=== PATIENT | male | born 1945 | race Caucasian/White ===

== ENCOUNTER → 2022-11-15 14:32 | Outpatient (BNVA) | payer MEDICARE, SELFPAY | PROVIDERS: PCP Internal Medicine; Visit Provider Internal Medicine | DX: J45.909 Unspecified asthma, uncomplicated (principal); R05.9 Cough, unspecified | CPT/HCPCS: 99202 ==

== ENCOUNTER 2023-01-03 09:47 | Outpatient (REF) | payer OTHER, SELFPAY ==
--- NOTE | 2023-01-03 10:20 | PFT_ITS ---
FLOWS: 1. FEV1 122% of predicted at 3.23 L. 2. FVC 113% of predicted at 4.19 L. 3. FEV1 to FVC ratio of 0.77. 4. No bronchodilator response except in small to medium airways. LUNG VOLUMES: 1. Total lung capacity 95% of predicted at 6.18 L. 2. Residual volume 75% of predicted at 1.82 L. 3. Slow vital capacity 108% of predicted at 4.36 L. 4. Expiratory reserve volume 56% of predicted at 0.58 L. 5. Diffusion capacity is normal. IMPRESSION: No obstructive or restrictive ventilatory defect. No bronchodilator response except in small to medium airways. Otherwise normal pulmonary function test. MD ASH Pabon/MODL / [id number]
== END 2023-01-03 09:48 | disposition home or self-care (01) ==
LOC: HO.RESP 09:47
PROVIDERS: PCP Internal Medicine; Visit Provider Internal Medicine
DX: J45.909 Unspecified asthma, uncomplicated (principal); R05.9 Cough, unspecified
CPT/HCPCS: 94010; 94727; 94729

== ENCOUNTER → 2023-01-03 10:20 | Outpatient (BNV) | payer MEDICARE, SELFPAY | PROVIDERS: PCP Internal Medicine; Visit Provider Internal Medicine Pulmonary Disease | DX: R05.9 Cough, unspecified (principal) | CPT/HCPCS: 94060; 94727; 94729 ==

== ENCOUNTER 2023-01-17 13:36 | Outpatient (AMB) | payer OTHER, SELFPAY ==
[2023-01-17 13:40] VITALS: BP 124/70; PULSE 63; O2SAT 95; BMI 33.3
--- NOTE | 2023-01-17 13:40 | MHC.OFFVIS ---
Intake Vital Signs 01/17/23 13:40 Height 5 ft 7 in Weight 212 lb 11.937 oz BMI 33.3 BP 124/70 Blood Pressure Location Lt brachial Position Sitting Pulse 63 Pulse Source Pulse Oximeter Pulse Oximetry (%) 95 Oxygen Delivery Method Room Air Intake Visit Reasons: Cough Allergies No Known Allergies Allergy (Verified 01/17/23 15:04) Medication List - Last Reconciled 01/17/23 by Cherie Prince MD albuterol sulfate 90 mcg/actuation 2 puffs inhalation Q4-6H PRN 30 days fluticasone propionate 50 mcg/actuation (Children's Flonase Allergy Relief) 2 sprays intranasal DAILY 30 days loratadine 10 mg PO DAILY PRN 30 days prazosin 3 mg PO BEDTIME sertraline 150 mg PO DAILY trazodone 25 mg PO BEDTIME PRN Do you need a note to return to daycare/school/sports/work: No HPI Cough HPI Details THIS 77 YEARS OLD GENTLEMAN IS HERE FOR FOLLOW-UP AFTER HIS PULMONARY FUNCTION TEST. HE CONTINUES TO HAVE MILD INTERMITTENT NASAL CONGESTION WITH, INTERMITTENT RUNNY NOSE, AND ALSO INTERMITTENT BOUTS OF COUGH. THE COUGH GETS BETTER IF HE USES MUCINEX, AND ALSO WITH THE USE OF ALBUTEROL INHALER. ) HE ALSO RINSES HIS MOUTH WITH DILUTED HYDROGEN PEROXIDE SOLUTION, HE IS VERY FOND OF USING H2O2 ( HAS READ THE BOOK, MIRACLE OF H2 O2 HE USES FLONASE AND CLAIMS THAT SOMETIME AFTER USING FLONASE HE GETS MORE RUNNY NOSE, BUT IT CLEARS LATER ON. [facility] Medical History Allergic rhinitis Asthma Cough Social History Patient Tobacco Use Status: Never used Tobacco Review of Systems Const All systems reviewed & are unremarkable except as noted in HPI and below Eyes Reports no additional complaints ENT Reports nasal congestion and Reports post nasal drip (OFF AND ON) Card Denies chest pain, Denies irregular heart rhythm, Denies leg edema and Denies dyspnea on exertion Resp Reports as per HPI and Denies dyspnea on exertion GI Reports no additional complaints Reports no additional complaints Musc Reports no additional complaints Skin/Breast Reports system reviewed and no additional complaints, except as documented Neuro Reports no additional complaints Psych Reports depression (CONTROLLED WITH MED SERTRALINE 150 MG) Endo Reports no additional complaints Aller/Immun Reports no additional complaints Physical Exam Vital Signs: Last Vital Signs Pulse 63 01/17/23 13:40 BP 124/70 01/17/23 13:40 Pulse Ox 95 01/17/23 13:40 Oxygen Delivery Method Room Air 01/17/23 13:40 BMI result Body Mass Index 33.3 Const General: healthy appearing (EXCEPT BEING MODERATELY OVER WEIGHT), comfortable, no acute distress, alert and awake Orientation/consciousness: patient oriented x3 HEENT Head: Yes normal to inspection General nose exam: No nasal polyps present and No nasal discharge present Face and sinus: Yes sinuses nontender Mouth: oropharynx normal Throat: Yes posterior oropharynx abnormal (THE POSTERIOR PHARYNGEAL WALL IS SOMEWHAT ERYTHEMATOUS AND GRANULAR,) Eyes General: appearance normal, both eyes and all related structures Neck Neck: Yes normal visual inspection, Yes no lymphadenopathy, Yes trachea midline and Yes no JVD Thyroid: Thyroid normal Chest Chest palpation & inspection: normal inspection of the chest, normal palpation of entire chest wall and no tenderness Resp Other: PERCUSSION NOTE RESONANT, BREATH SOUNDS ARE EQUAL ON BOTH SIDES. NO WHEEZES OR RHONCHI ARE HEARD, NO CREPITATIONS. Cardio Palpation: normal PMI Rate: regular rate Rhythm: regular rhythm Heart sounds: no gallops and no murmurs Peripheral pulses: Peripheral pulses 2+ throughout GI Palpation (GI): Soft to palpation, nontender, No hepatosplenomegaly present and no masses Auscultation: normal bowel sounds Back/Spine/Pelvis Thoracic/Lumbar Spine: thoracic and lumbar spine normal to inspection Skin General skin exam: no rashes or lesions noted Neuro General: patient oriented x3 and no focal motor deficits Cranial nerves: Yes CN's II-XII intact bilaterally Extrem General: Yes normal to inspection, Yes no clubbing, cyanosis or edema and Yes no calf tenderness Psych Appearance: grossly normal and well kempt Speech and movement: Normal speech and movement present Results Reviewed Results Reviewed: PULMONARY FUNCTION TEST ON 01/03/2023. ESSENTIALLY NORMAL AND THERE IS NO EVIDENCE OF OBSTRUCTIVE OR RESTRICTIVE PULMONARY DISORDER. FE- DID APPROVED BY 20/9% AFTER OF BD TREATMENT Assessment & Plan Assessment & Plan (1) Allergic rhinitis: Comment: PATIENT DOES HAVE SUBACUTE TYPE ALLERGIC RHINITIS/SINUSITIS, AND THIS MAY BE CONTRIBUTING TO HIS. ONGOING COUGH TX : FLONASE. 2 SPRAY EACH NOSTRIL DAILY LORATADINE 10 MG 1 TABLET PER DAY P.R.N. IF THERE IS INCREASED NASAL CONGESTION. Code(s): J30.9 - Allergic rhinitis, unspecified (2) Cough: Comment: CHRONIC COUGH SINCE MAY 2022 IS MOST LIKELY,, SECONDARY TO ONGOING LOW-GRADE ALLERGIC RHINITIS/SINUSITIS. IT MAY BE , LONGSTANDING BUT AGGRAVATED AFTER POSSIBLE UPPER RESPIRATORY INFECTION IN MAY OF THIS YEAR. POSSIBILITY OF ASTHMA VARIANT, AND REACTIVE AIRWAYS . TX : NO NEED OF USING ANY CONTROLLING AGENTS. OK TO USE MUCINEX LIQUID 1 OR 2 TSP P.R.N. FOR COUGH. OK TO USE ALBUTEROL INHALER 2 PUFFS P.R.N. IF COUGH IS SUSTAINED OR IF ANY WHEEZING. Code(s): R05.9 - Cough, unspecified (3) Asthma: Comment: HE DOES NOT HAVE CLEAR-CUT BRONCHIAL ASTHMA BUT HIS ONGOING COUGH MAY BE SECONDARY TO ASTHMA VARIANT. PULMONARY FUNCTION TEST IS BEING SCHEDULED. TX: MAY USE PROAIR 2 PUFFS Q 4-6 HOURS P.R.N. IF HE HAS SUSTAINED BOUTS OF COUGH. WE HAD A LONG FRIENDLY TALK. ADVISED HIM THAT HE CAN COME ONCE A YEAR ARE ONLY NEEDED. Code(s): J45.909 - Unspecified asthma, uncomplicated Coding Level of Care Code Est Pt Level 3 (24196) Diagnoses Allergic rhinitis J30.9 Cough R05.9 Asthma J45.909
== END 2023-01-17 14:05 | disposition home or self-care (01) ==
PROVIDERS: PCP Internal Medicine; Visit Provider Internal Medicine
DX: J30.9 Allergic rhinitis, unspecified (principal); R05.9 Cough, unspecified
CPT/HCPCS: 99213

== ENCOUNTER → 2023-01-17 13:36 | Outpatient (BNVA) | payer OTHER, MEDICARE, SELFPAY | PROVIDERS: PCP Internal Medicine; Visit Provider Internal Medicine | DX: R05.9 Cough, unspecified (principal); J45.909 Unspecified asthma, uncomplicated; J30.9 Allergic rhinitis, unspecified | CPT/HCPCS: 99212 ==